=== PATIENT | male | born 1940 | race Caucasian/White ===

== ENCOUNTER 2021-05-23 15:18 | Inpatient (IN) ==
[2021-05-23] MEDS ORDERED: Loratadine 10 MG TABLET PO PRN (21:47)
[2021-05-23] MEDS ORDERED: Acetaminophen 325 MG TABLET PO PRN (21:47)
[2021-05-23] MEDS ORDERED: Nitroglycerin 0.4 MG TAB.SUBL SL PRN (21:47)
[2021-05-23] MEDS ORDERED: MOM Conc 10 ML UD.LIQ PO PRN (21:47)
[2021-05-23] MEDS ORDERED: *HR* Dextrose 50 % in Water (Vial) 50 ML VIAL IVP PRN (21:49)
[2021-05-23] MEDS ORDERED: D5% in Water 1,000 ML IVC PRN (21:49)
[2021-05-23] MEDS ORDERED: Dextrose Gel 15 GM/37.5 ML TUBE PO PRN ×2 (21:49)
[2021-05-23] MEDS ORDERED: Insulin DETEMIR 100 UNIT/ML per UNIT SUBQ ONE (22:15)
[2021-05-23] MEDS: Budesonide/Formoterol 160/4.5 1 PUFF INH IH SCH (23:09)
[2021-05-24] MEDS: *HR* Heparin 5,000 UNIT/ML VIAL SQ SCH ×2 (05:24→18:05)
[2021-05-24 06:39] LABS: Basophils % 0.2 %; Eosinophils % 0.3 %; Hemoglobin 8.5 g/dL (12.9-16.9); Immature Granulocytes % 0.5 % (0-4); Lymphocytes % 8.8 %; Mean Corpuscular HGB Conc 31.5 g/dL (31.6-35.5); Mean Corpuscular Hemoglobin 27.3 pg (28.0-33.3); Mean Corpuscular Volume 86.8 fL (83.0-100.0); Mean Platelet Volume 10.6 fL (9.4-12.4); Monocytes # 1.7 K/mcL (0.0-1.3); Monocytes % 14.8 %; Neutrophils # 8.6 K/mcL (1.6-8.9); Platelet Count 248 K/mcL (140-400); Red Blood Count 3.11 M/mcL (4.19-5.50); Red Cell Distribution Width 14.9 % (11.5-14.5); Segmented Neutrophils % 75.4 %; White Blood Count 11.4 K/mcL (4.3-11.1)
[2021-05-24 06:51] LABS: Calcium 8.4 mg/dL (8.6-10.3)
[2021-05-24] MEDS: Insulin LISPRO 300 UNITS/3 ML VIAL SUBQ SCH ×6 (07:46→16:35)
[2021-05-24] MEDS: Budesonide/Formoterol 160/4.5 1 PUFF INH IH SCH ×2 (07:50→21:46)
[2021-05-24] MEDS: Cholecalciferol (D-3) 1,000 UNIT (25MCG) TABLET PO SCH (09:01)
[2021-05-24] MEDS: Finasteride 5 MG TABLET PO SCH (09:01)
[2021-05-24] MEDS: FLUoxetine 20 MG CAPSULE PO SCH (09:02)
[2021-05-24] MEDS: Isosorbide MONOnitrate (24 HR) 30 MG TAB.ER.24H PO SCH (09:02)
[2021-05-24] MEDS: Fluticasone Propionate Nasal 50 MCG/SPRAY BOTTLE NS SCH (09:12)
[2021-05-24] MEDS: Insulin DETEMIR 100 UNIT/ML X5UNITS SUBQ SCH (09:12)
[2021-05-25] MEDS: *HR* Heparin 5,000 UNIT/ML VIAL SQ SCH ×2 (06:14→17:29)
[2021-05-25] MEDS: FLUoxetine 20 MG CAPSULE PO SCH (08:00)
[2021-05-25] MEDS: Isosorbide MONOnitrate (24 HR) 30 MG TAB.ER.24H PO SCH (08:00)
[2021-05-25] MEDS: Cholecalciferol (D-3) 1,000 UNIT (25MCG) TABLET PO SCH (08:01)
[2021-05-25] MEDS: Fluticasone Propionate Nasal 50 MCG/SPRAY BOTTLE NS SCH (08:01)
[2021-05-25] MEDS: Finasteride 5 MG TABLET PO SCH (08:01)
[2021-05-25] MEDS: Insulin LISPRO 300 UNITS/3 ML VIAL SUBQ SCH ×6 (08:02→17:02)
[2021-05-25] MEDS: Insulin DETEMIR 100 UNIT/ML X5UNITS SUBQ SCH (09:30)
[2021-05-25] MEDS: Budesonide/Formoterol 160/4.5 1 PUFF INH IH SCH ×2 (10:41→21:45)
[2021-05-25] MEDS ORDERED: Insulin DETEMIR 100 UNIT/ML X5UNITS SUBQ ONE (21:00)
[2021-05-25] MEDS ORDERED: Insulin DETEMIR 100 UNIT/ML X5UNITS SUBQ SCH (21:00)
[2021-05-26] MEDS: *HR* Heparin 5,000 UNIT/ML VIAL SQ SCH ×2 (05:17→16:47)
[2021-05-26 07:13] LABS: Hematocrit 26.9 % (37.5-50.1); Hemoglobin 8.4 g/dL (12.9-16.9); Mean Corpuscular HGB Conc 31.2 g/dL (31.6-35.5); Mean Corpuscular Hemoglobin 27.3 pg (28.0-33.3); Mean Corpuscular Volume 87.3 fL (83.0-100.0); Mean Platelet Volume 10.6 fL (9.4-12.4); Platelet Count 293 K/mcL (140-400); Red Blood Count 3.08 M/mcL (4.19-5.50); Red Cell Distribution Width 15.1 % (11.5-14.5); White Blood Count 6.8 K/mcL (4.3-11.1)
[2021-05-26 07:38] LABS: Calcium 7.9 mg/dL (8.6-10.3); Potassium 4.4 mEq/L (3.5-5.1)
[2021-05-26] MEDS: Isosorbide MONOnitrate (24 HR) 30 MG TAB.ER.24H PO SCH (08:48)
[2021-05-26] MEDS: FLUoxetine 20 MG CAPSULE PO SCH (08:48)
[2021-05-26] MEDS: Fluticasone Propionate Nasal 50 MCG/SPRAY BOTTLE NS SCH (08:48)
[2021-05-26] MEDS: Cholecalciferol (D-3) 1,000 UNIT (25MCG) TABLET PO SCH (08:48)
[2021-05-26] MEDS: Finasteride 5 MG TABLET PO SCH (08:48)
[2021-05-26] MEDS: Insulin LISPRO 300 UNITS/3 ML VIAL SUBQ SCH ×6 (08:54→16:47)
[2021-05-26] MEDS: Budesonide/Formoterol 160/4.5 1 PUFF INH IH SCH ×2 (09:54→20:35)
[2021-05-26] MEDS ORDERED: Insulin DETEMIR 100 UNIT/ML X5UNITS SUBQ SCH (21:00)
[2021-05-26] MEDS ORDERED: Insulin DETEMIR 100 UNIT/ML per UNIT SUBQ ONE (21:00)
[2021-05-27] MEDS: *HR* Heparin 5,000 UNIT/ML VIAL SQ SCH ×2 (06:19→16:53)
[2021-05-27] MEDS: Insulin LISPRO 300 UNITS/3 ML VIAL SUBQ SCH ×6 (09:22→16:40)
[2021-05-27] MEDS: Cholecalciferol (D-3) 1,000 UNIT (25MCG) TABLET PO SCH (09:22)
[2021-05-27] MEDS: Isosorbide MONOnitrate (24 HR) 30 MG TAB.ER.24H PO SCH (09:22)
[2021-05-27] MEDS: Finasteride 5 MG TABLET PO SCH (09:22)
[2021-05-27] MEDS: FLUoxetine 20 MG CAPSULE PO SCH (09:22)
[2021-05-27] MEDS: Fluticasone Propionate Nasal 50 MCG/SPRAY BOTTLE NS SCH (09:23)
[2021-05-27] MEDS: Budesonide/Formoterol 160/4.5 1 PUFF INH IH SCH ×2 (09:56→21:09)
[2021-05-27] MEDS: Ondansetron ODT 4 MG TAB.RAPDIS SL PRN (16:54)
[2021-05-27] MEDS: Insulin DETEMIR 100 UNIT/ML X5UNITS SUBQ SCH (20:35)
[2021-05-28] MEDS: *HR* Heparin 5,000 UNIT/ML VIAL SQ SCH ×2 (05:52→16:33)
[2021-05-28 06:40] LABS: Calcium 8.3 mg/dL (8.6-10.3); Potassium 4.6 mEq/L (3.5-5.1)
[2021-05-28] MEDS: Insulin LISPRO 300 UNITS/3 ML VIAL SUBQ SCH ×6 (07:47→16:41)
[2021-05-28] MEDS: Finasteride 5 MG TABLET PO SCH (09:36)
[2021-05-28] MEDS: FLUoxetine 20 MG CAPSULE PO SCH (09:36)
[2021-05-28] MEDS: Fluticasone Propionate Nasal 50 MCG/SPRAY BOTTLE NS SCH (09:36)
[2021-05-28] MEDS: Cholecalciferol (D-3) 1,000 UNIT (25MCG) TABLET PO SCH (09:36)
[2021-05-28] MEDS: Isosorbide MONOnitrate (24 HR) 30 MG TAB.ER.24H PO SCH (09:36)
[2021-05-28] MEDS: Budesonide/Formoterol 160/4.5 1 PUFF INH IH SCH ×2 (10:06→22:30)
[2021-05-28] MEDS: Mag Hydrox/Al Hydrox/Simeth 30 ML UDC PO PRN ×2 (10:13→16:33)
[2021-05-28] MEDS: Insulin DETEMIR 100 UNIT/ML X5UNITS SUBQ SCH (20:24)
[2021-05-29] MEDS: *HR* Heparin 5,000 UNIT/ML VIAL SQ SCH ×2 (05:56→17:01)
[2021-05-29] MEDS: Budesonide/Formoterol 160/4.5 1 PUFF INH IH SCH ×2 (08:10→21:27)
[2021-05-29] MEDS: Insulin LISPRO 300 UNITS/3 ML VIAL SUBQ SCH ×6 (08:22→17:00)
[2021-05-29] MEDS: Fluticasone Propionate Nasal 50 MCG/SPRAY BOTTLE NS SCH (08:23)
[2021-05-29] MEDS: Isosorbide MONOnitrate (24 HR) 30 MG TAB.ER.24H PO SCH (08:25)
[2021-05-29] MEDS: Cholecalciferol (D-3) 1,000 UNIT (25MCG) TABLET PO SCH (08:25)
[2021-05-29] MEDS: FLUoxetine 20 MG CAPSULE PO SCH (08:25)
[2021-05-29] MEDS: Finasteride 5 MG TABLET PO SCH (08:26)
[2021-05-29] MEDS: Insulin DETEMIR 100 UNIT/ML X5UNITS SUBQ SCH (20:17)
[2021-05-29] MEDS: Mag Hydrox/Al Hydrox/Simeth 30 ML UDC PO PRN (20:17)
[2021-05-30 06:02] LABS: Basophils % 0.5 %; Eosinophils # 0.1 K/mcL (0.0-0.6); Eosinophils % 1.7 %; Hematocrit 28.7 % (37.5-50.1); Hemoglobin 8.9 g/dL (12.9-16.9); Immature Granulocytes % 0.8 % (0-4); Lymphocytes % 16.7 %; Mean Corpuscular Hemoglobin 27.3 pg (28.0-33.3); Mean Platelet Volume 9.5 fL (9.4-12.4); Monocytes % 16.7 %; Neutrophils # 3.8 K/mcL (1.6-8.9); Platelet Count 359 K/mcL (140-400); Red Blood Count 3.26 M/mcL (4.19-5.50); Red Cell Distribution Width 15.2 % (11.5-14.5); Segmented Neutrophils % 63.6 %
[2021-05-30] MEDS: *HR* Heparin 5,000 UNIT/ML VIAL SQ SCH ×2 (06:21→17:26)
[2021-05-30 06:27] LABS: Calcium 8.2 mg/dL (8.6-10.3); Potassium 4.8 mEq/L (3.5-5.1)
[2021-05-30] MEDS: Insulin LISPRO 300 UNITS/3 ML VIAL SUBQ SCH ×6 (07:34→17:26)
[2021-05-30] MEDS: Finasteride 5 MG TABLET PO SCH (09:06)
[2021-05-30] MEDS: Fluticasone Propionate Nasal 50 MCG/SPRAY BOTTLE NS SCH (09:06)
[2021-05-30] MEDS: Isosorbide MONOnitrate (24 HR) 30 MG TAB.ER.24H PO SCH (09:06)
[2021-05-30] MEDS: FLUoxetine 20 MG CAPSULE PO SCH (09:06)
[2021-05-30] MEDS: Cholecalciferol (D-3) 1,000 UNIT (25MCG) TABLET PO SCH (09:07)
[2021-05-30] MEDS: Budesonide/Formoterol 160/4.5 1 PUFF INH IH SCH ×2 (09:23→20:23)
[2021-05-30] MEDS: Insulin DETEMIR 100 UNIT/ML X5UNITS SUBQ SCH (21:03)
[2021-05-30] MEDS: Mag Hydrox/Al Hydrox/Simeth 30 ML UDC PO PRN (21:03)
[2021-05-31] MEDS: *HR* Heparin 5,000 UNIT/ML VIAL SQ SCH ×2 (05:49→17:20)
[2021-05-31] MEDS: Insulin LISPRO 300 UNITS/3 ML VIAL SUBQ SCH ×6 (07:49→17:25)
[2021-05-31] MEDS: Budesonide/Formoterol 160/4.5 1 PUFF INH IH SCH ×2 (09:46→21:12)
[2021-05-31] MEDS: Isosorbide MONOnitrate (24 HR) 30 MG TAB.ER.24H PO SCH (10:49)
[2021-05-31] MEDS: Cholecalciferol (D-3) 1,000 UNIT (25MCG) TABLET PO SCH (10:49)
[2021-05-31] MEDS: FLUoxetine 20 MG CAPSULE PO SCH (10:49)
[2021-05-31] MEDS: Finasteride 5 MG TABLET PO SCH (10:49)
[2021-05-31] MEDS: Fluticasone Propionate Nasal 50 MCG/SPRAY BOTTLE NS SCH (12:32)
[2021-05-31] MEDS ORDERED: 0.9 % Sodium Chloride 1,000 ML IVC SCH (12:45)
[2021-05-31] MEDS: *HR* OxyCODONE Immed Rel 5 MG TABLET PO PRN (14:50)
[2021-05-31] MEDS: Insulin DETEMIR 100 UNIT/ML X5UNITS SUBQ SCH (21:20)
[2021-06-01] MEDS: Ondansetron ODT 4 MG TAB.RAPDIS SL PRN (03:19)
[2021-06-01] MEDS: *HR* OxyCODONE Immed Rel 5 MG TABLET PO PRN (04:28)
[2021-06-01] MEDS: Mag Hydrox/Al Hydrox/Simeth 30 ML UDC PO PRN (04:28)
[2021-06-01] MEDS: *HR* Heparin 5,000 UNIT/ML VIAL SQ SCH (06:03)
[2021-06-01 07:16] VITALS: BP 121/55
[2021-06-01 07:46] LABS: Potassium 7.3 mEq/L (3.5-5.1)
[2021-06-01 07:50] LABS: Basophils # 0.1 K/mcL (0.0-0.2); Basophils % 0.5 %; Eosinophils % 0.2 %; Hematocrit 31.7 % (37.5-50.1); Immature Granulocytes % 0.7 % (0-4); Lymphocytes # 0.6 K/mcL (0.6-4.6); Lymphocytes % 5.7 %; Mean Corpuscular HGB Conc 28.4 g/dL (31.6-35.5); Mean Corpuscular Hemoglobin 27.6 pg (28.0-33.3); Mean Corpuscular Volume 97.2 fL (83.0-100.0); Monocytes # 0.9 K/mcL (0.0-1.3); Monocytes % 8.2 %; Neutrophils # 8.9 K/mcL (1.6-8.9); Platelet Count 405 K/mcL (140-400); Red Blood Count 3.26 M/mcL (4.19-5.50); Red Cell Distribution Width 15.9 % (11.5-14.5); Segmented Neutrophils % 84.7 %; White Blood Count 10.5 K/mcL (4.3-11.1)
[2021-06-01] MEDS ORDERED: 0.9 % Sodium Chloride 500 ML IVC ONE (08:03)
[2021-06-01 08:05] LABS: Albumin 3.3 g/dL (3.5-5.7); Bilirubin,Direct 0.1 mg/dL (0.0-0.2); Bilirubin,Indirect 0.3 mg/dL (0.0-1.0); Bilirubin,Total 0.4 mg/dL (0.3-1.0); Globulin 3.3 g/dL (2.4-3.5); Total Protein 6.6 g/dL (6.4-8.9)
[2021-06-01 08:20] LABS: Calcium 8.3 mg/dL (8.6-10.3); Potassium 6.8 mEq/L (3.5-5.1)
[2021-06-01] MEDS: Insulin LISPRO 300 UNITS/3 ML VIAL SUBQ SCH ×2 (08:28→08:29)
[2021-06-01 08:29] LABS: ABG Base Excess -13 mEq/L (-2 to 3); ABG HCO3 13 mEq/L (21-27); ABG Oxygen Saturation 98 % (95-98); ABG PCO2 29 mmHg (35-45); ABG PH 7.25 pH Units (7.32-7.45); ABG PO2 111 mmHg (85-104); ABG TCO2 14 mEq/L (20-26); Blood Gas FiO2 2.5 (1-15=lpm or21-100=%)
[2021-06-01] MEDS ORDERED: Insulin Human Regular 10 UNIT in 0.9 % Sodium Chloride 10 ML IV ONE ×2 (08:30→09:00)
[2021-06-01] MEDS ORDERED: Sodium Bicarbonate 50 MEQ/50 ML VIAL IVP ONE (08:31)
[2021-06-01] MEDS ORDERED: *HR* Dextrose 50 % in Water (Vial) 50 ML VIAL IVP PRN (08:31)
[2021-06-01] MEDS: Finasteride 5 MG TABLET PO SCH (08:34)
[2021-06-01] MEDS: FLUoxetine 20 MG CAPSULE PO SCH (08:34)
[2021-06-01] MEDS: Fluticasone Propionate Nasal 50 MCG/SPRAY BOTTLE NS SCH (08:34)
[2021-06-01] MEDS: Isosorbide MONOnitrate (24 HR) 30 MG TAB.ER.24H PO SCH (08:34)
[2021-06-01 08:35] LABS: Platelet Estimate Increased (Normal)
[2021-06-01] MEDS: Cholecalciferol (D-3) 1,000 UNIT (25MCG) TABLET PO SCH (08:35)
[2021-06-01] MEDS ORDERED: Insulin Human Regular 100 UNIT in 0.9 % Sodium Chloride 100 ML IVC SCH (08:45)
[2021-06-01] MEDS: Calcium Gluconate 1gm/50mL 1 GM/50 ML BAG IVPB SCH ×2 (08:56→09:51)
[2021-06-01] MEDS: Budesonide/Formoterol 160/4.5 1 PUFF INH IH SCH (10:14)
== END 2021-06-01 10:20 | disposition short-term general hospital (02) | DRG 945 ==
LOC: INPPIK 21:01
PROVIDERS: ADMIT Family Medicine; ATTEND Family Medicine

== ENCOUNTER 2021-06-07 17:16 | Inpatient (IN) ==
[2021-06-08] MEDS ORDERED: Nitroglycerin 0.4 MG TAB.SUBL SL PRN (14:51)
[2021-06-08] MEDS ORDERED: Loratadine 10 MG TABLET PO PRN (14:58)
[2021-06-08] MEDS ORDERED: D5% in Water 1,000 ML IVC PRN (15:08)
[2021-06-08] MEDS ORDERED: Dextrose Gel 15 GM/37.5 ML TUBE PO PRN ×2 (15:08)
[2021-06-08] MEDS ORDERED: *HR* Dextrose 50 % in Water (Vial) 50 ML VIAL IVP PRN (15:08)
[2021-06-08] MEDS: Insulin LISPRO 300 UNITS/3 ML VIAL SUBQ SCH (16:41)
[2021-06-08] MEDS ORDERED: NON-FORMULARY MEDICATION 1 EACH EACH (Insulin Aspart [Novolog Flexpen] 100 UNIT/ML Insuln. SQ SCH (17:00)
[2021-06-08] MEDS: Famotidine 20 MG TABLET PO SCH (20:53)
[2021-06-08] MEDS: Acetaminophen 325 MG TABLET PO PRN (20:54)
[2021-06-08] MEDS ORDERED: Insulin DETEMIR 100 UNIT/ML X5UNITS SUBQ SCH (21:00)
[2021-06-08] MEDS: Budesonide/Formoterol 160/4.5 1 PUFF INH IH SCH (21:46)
[2021-06-09 07:02] LABS: Basophils % 0.5 %; Eosinophils # 0.1 K/mcL (0.0-0.6); Eosinophils % 0.9 %; Hematocrit 27.9 % (37.5-50.1); Hemoglobin 8.9 g/dL (12.9-16.9); Immature Granulocytes % 0.5 % (0-4); Lymphocytes # 1.2 K/mcL (0.6-4.6); Lymphocytes % 18.8 %; Mean Corpuscular HGB Conc 31.9 g/dL (31.6-35.5); Mean Corpuscular Hemoglobin 28.6 pg (28.0-33.3); Mean Corpuscular Volume 89.7 fL (83.0-100.0); Monocytes % 15.1 %; Neutrophils # 4.2 K/mcL (1.6-8.9); Platelet Count 267 K/mcL (140-400); Red Blood Count 3.11 M/mcL (4.19-5.50); Red Cell Distribution Width 15.9 % (11.5-14.5); Segmented Neutrophils % 64.2 %; White Blood Count 6.5 K/mcL (4.3-11.1)
[2021-06-09 08:11] LABS: Activated Partial Thrombo Time 25.7 Seconds (26.0-36.0)
[2021-06-09] MEDS: Isosorbide MONOnitrate (24 HR) 30 MG TAB.ER.24H PO SCH (08:20)
[2021-06-09] MEDS: FLUoxetine 20 MG CAPSULE PO SCH (08:20)
[2021-06-09] MEDS: Aspirin Enteric Coated 81 MG Tablet PO SCH (08:21)
[2021-06-09] MEDS: Finasteride 5 MG TABLET PO SCH (08:21)
[2021-06-09] MEDS: Cholecalciferol (D-3) 1,000 UNIT (25MCG) TABLET PO SCH (08:21)
[2021-06-09] MEDS: Insulin LISPRO 300 UNITS/3 ML VIAL SUBQ SCH ×3 (08:23→16:46)
[2021-06-09] MEDS: Fluticasone Propionate Nasal 50 MCG/SPRAY BOTTLE NS SCH (08:23)
[2021-06-09] MEDS: Budesonide/Formoterol 160/4.5 1 PUFF INH IH SCH ×2 (10:02→21:01)
[2021-06-09] MEDS: hydrALAZINE 25 MG TABLET PO SCH ×2 (16:45→23:03)
[2021-06-09] MEDS: Insulin DETEMIR 100 UNIT/ML X5UNITS SUBQ SCH (19:33)
[2021-06-09] MEDS: Famotidine 20 MG TABLET PO SCH (19:34)
[2021-06-10] MEDS: FLUoxetine 20 MG CAPSULE PO SCH (07:40)
[2021-06-10] MEDS: Finasteride 5 MG TABLET PO SCH (07:40)
[2021-06-10] MEDS: hydrALAZINE 25 MG TABLET PO SCH ×2 (07:40→16:29)
[2021-06-10] MEDS: Aspirin Enteric Coated 81 MG Tablet PO SCH (07:40)
[2021-06-10] MEDS: Fluticasone Propionate Nasal 50 MCG/SPRAY BOTTLE NS SCH (07:41)
[2021-06-10] MEDS: Isosorbide MONOnitrate (24 HR) 30 MG TAB.ER.24H PO SCH (07:41)
[2021-06-10] MEDS: Cholecalciferol (D-3) 1,000 UNIT (25MCG) TABLET PO SCH (07:41)
[2021-06-10] MEDS: Insulin LISPRO 300 UNITS/3 ML VIAL SUBQ SCH ×3 (07:42→16:30)
[2021-06-10] MEDS: Insulin DETEMIR 100 UNIT/ML X5UNITS SUBQ SCH ×2 (07:46→20:32)
[2021-06-10] MEDS: Budesonide/Formoterol 160/4.5 1 PUFF INH IH SCH ×2 (10:10→21:40)
[2021-06-10] MEDS: Famotidine 20 MG TABLET PO SCH (20:31)
[2021-06-11] MEDS: hydrALAZINE 25 MG TABLET PO SCH ×3 (00:55→17:36)
[2021-06-11 06:32] LABS: Calcium 7.4 mg/dL (8.6-10.3); Potassium 3.7 mEq/L (3.5-5.1)
[2021-06-11 06:42] LABS: Basophils % 0.5 %; Eosinophils # 0.1 K/mcL (0.0-0.6); Hematocrit 27.8 % (37.5-50.1); Hemoglobin 8.7 g/dL (12.9-16.9); Immature Granulocytes % 0.6 % (0-4); Lymphocytes # 1.1 K/mcL (0.6-4.6); Lymphocytes % 13.9 %; Mean Corpuscular HGB Conc 31.3 g/dL (31.6-35.5); Mean Corpuscular Hemoglobin 28.3 pg (28.0-33.3); Mean Corpuscular Volume 90.6 fL (83.0-100.0); Mean Platelet Volume 10.2 fL (9.4-12.4); Monocytes # 1.1 K/mcL (0.0-1.3); Monocytes % 14.4 %; Neutrophils # 5.5 K/mcL (1.6-8.9); Platelet Count 259 K/mcL (140-400); Red Blood Count 3.07 M/mcL (4.19-5.50); Red Cell Distribution Width 16.1 % (11.5-14.5); Segmented Neutrophils % 69.6 %; White Blood Count 7.9 K/mcL (4.3-11.1)
[2021-06-11] MEDS: Insulin LISPRO 300 UNITS/3 ML VIAL SUBQ SCH ×3 (07:31→16:47)
[2021-06-11] MEDS: Fluticasone Propionate Nasal 50 MCG/SPRAY BOTTLE NS SCH (07:58)
[2021-06-11] MEDS: Aspirin Enteric Coated 81 MG Tablet PO SCH (07:59)
[2021-06-11] MEDS: FLUoxetine 20 MG CAPSULE PO SCH (07:59)
[2021-06-11] MEDS: Finasteride 5 MG TABLET PO SCH (08:00)
[2021-06-11] MEDS: Cholecalciferol (D-3) 1,000 UNIT (25MCG) TABLET PO SCH (08:00)
[2021-06-11] MEDS: Isosorbide MONOnitrate (24 HR) 30 MG TAB.ER.24H PO SCH (08:00)
[2021-06-11] MEDS: Budesonide/Formoterol 160/4.5 1 PUFF INH IH SCH ×2 (09:20→23:49)
[2021-06-11] MEDS: Insulin DETEMIR 100 UNIT/ML X5UNITS SUBQ SCH ×2 (10:00→21:08)
[2021-06-11] MEDS: Famotidine 20 MG TABLET PO SCH (21:07)
[2021-06-12] MEDS: hydrALAZINE 25 MG TABLET PO SCH ×3 (00:17→17:42)
[2021-06-12] MEDS: Insulin LISPRO 300 UNITS/3 ML VIAL SUBQ SCH ×3 (08:21→17:37)
[2021-06-12] MEDS: Budesonide/Formoterol 160/4.5 1 PUFF INH IH SCH ×2 (09:17→22:18)
[2021-06-12] MEDS: Cholecalciferol (D-3) 1,000 UNIT (25MCG) TABLET PO SCH (09:27)
[2021-06-12] MEDS: FLUoxetine 20 MG CAPSULE PO SCH (09:27)
[2021-06-12] MEDS: Finasteride 5 MG TABLET PO SCH (09:27)
[2021-06-12] MEDS: Aspirin Enteric Coated 81 MG Tablet PO SCH (09:27)
[2021-06-12] MEDS: Isosorbide MONOnitrate (24 HR) 30 MG TAB.ER.24H PO SCH (09:28)
[2021-06-12] MEDS: Fluticasone Propionate Nasal 50 MCG/SPRAY BOTTLE NS SCH (09:28)
[2021-06-12] MEDS: Insulin DETEMIR 100 UNIT/ML X5UNITS SUBQ SCH ×2 (09:29→21:08)
[2021-06-12] MEDS: amLODIPine 5 MG TABLET PO SCH (13:07)
[2021-06-12] MEDS: Famotidine 20 MG TABLET PO SCH (21:07)
[2021-06-13] MEDS: hydrALAZINE 25 MG TABLET PO SCH ×3 (02:41→16:56)
[2021-06-13] MEDS: Aspirin Enteric Coated 81 MG Tablet PO SCH (08:04)
[2021-06-13] MEDS: Finasteride 5 MG TABLET PO SCH (08:05)
[2021-06-13] MEDS: amLODIPine 5 MG TABLET PO SCH (08:05)
[2021-06-13] MEDS: FLUoxetine 20 MG CAPSULE PO SCH (08:05)
[2021-06-13] MEDS: Isosorbide MONOnitrate (24 HR) 30 MG TAB.ER.24H PO SCH (08:05)
[2021-06-13] MEDS: Cholecalciferol (D-3) 1,000 UNIT (25MCG) TABLET PO SCH (08:05)
[2021-06-13] MEDS: Acetaminophen 325 MG TABLET PO PRN (08:05)
[2021-06-13] MEDS: Insulin LISPRO 300 UNITS/3 ML VIAL SUBQ SCH ×3 (08:06→16:57)
[2021-06-13] MEDS: Insulin DETEMIR 100 UNIT/ML X5UNITS SUBQ SCH ×2 (08:06→20:43)
[2021-06-13] MEDS: Budesonide/Formoterol 160/4.5 1 PUFF INH IH SCH ×2 (10:00→22:09)
[2021-06-13] MEDS: Fluticasone Propionate Nasal 50 MCG/SPRAY BOTTLE NS SCH (11:46)
[2021-06-13] MEDS: Famotidine 20 MG TABLET PO SCH (20:41)
[2021-06-14] MEDS: hydrALAZINE 25 MG TABLET PO SCH ×3 (00:16→17:34)
[2021-06-14] MEDS: Insulin LISPRO 300 UNITS/3 ML VIAL SUBQ SCH ×3 (07:30→17:12)
[2021-06-14] MEDS: Budesonide/Formoterol 160/4.5 1 PUFF INH IH SCH ×2 (08:28→21:49)
[2021-06-14] MEDS: Insulin DETEMIR 100 UNIT/ML X5UNITS SUBQ SCH ×2 (09:39→20:03)
[2021-06-14] MEDS: Finasteride 5 MG TABLET PO SCH (09:40)
[2021-06-14] MEDS: amLODIPine 5 MG TABLET PO SCH (09:40)
[2021-06-14] MEDS: Cholecalciferol (D-3) 1,000 UNIT (25MCG) TABLET PO SCH (09:40)
[2021-06-14] MEDS: Acetaminophen 325 MG TABLET PO PRN (09:40)
[2021-06-14] MEDS: Isosorbide MONOnitrate (24 HR) 30 MG TAB.ER.24H PO SCH (09:40)
[2021-06-14] MEDS: FLUoxetine 20 MG CAPSULE PO SCH (09:41)
[2021-06-14] MEDS: Aspirin Enteric Coated 81 MG Tablet PO SCH (09:44)
[2021-06-14] MEDS: Fluticasone Propionate Nasal 50 MCG/SPRAY BOTTLE NS SCH (11:29)
[2021-06-14] MEDS: Ondansetron ODT 4 MG TAB.RAPDIS SL PRN (17:35)
[2021-06-14] MEDS: Famotidine 20 MG TABLET PO SCH (20:07)
[2021-06-15] MEDS: hydrALAZINE 25 MG TABLET PO SCH ×3 (01:28→16:36)
[2021-06-15] MEDS: FLUoxetine 20 MG CAPSULE PO SCH (08:06)
[2021-06-15] MEDS: Finasteride 5 MG TABLET PO SCH (08:06)
[2021-06-15] MEDS: Fluticasone Propionate Nasal 50 MCG/SPRAY BOTTLE NS SCH (08:06)
[2021-06-15] MEDS: amLODIPine 5 MG TABLET PO SCH (08:06)
[2021-06-15] MEDS: Isosorbide MONOnitrate (24 HR) 30 MG TAB.ER.24H PO SCH (08:07)
[2021-06-15] MEDS: Cholecalciferol (D-3) 1,000 UNIT (25MCG) TABLET PO SCH (08:07)
[2021-06-15] MEDS: Insulin LISPRO 300 UNITS/3 ML VIAL SUBQ SCH ×3 (08:07→16:26)
[2021-06-15] MEDS: Aspirin Enteric Coated 81 MG Tablet PO SCH (08:08)
[2021-06-15] MEDS: Insulin DETEMIR 100 UNIT/ML X5UNITS SUBQ SCH ×2 (08:17→20:45)
[2021-06-15] MEDS: Budesonide/Formoterol 160/4.5 1 PUFF INH IH SCH ×2 (09:35→23:16)
[2021-06-15] MEDS: Acetaminophen 325 MG TABLET PO PRN ×2 (10:11→20:37)
[2021-06-15] MEDS: Famotidine 20 MG TABLET PO SCH (20:38)
[2021-06-16] MEDS: hydrALAZINE 25 MG TABLET PO SCH ×3 (00:36→16:57)
[2021-06-16 05:35] LABS: Basophils # 0.1 K/mcL (0.0-0.2); Basophils % 0.7 %; Eosinophils # 0.1 K/mcL (0.0-0.6); Eosinophils % 1.2 %; Hematocrit 28.7 % (37.5-50.1); Immature Granulocytes % 0.4 % (0-4); Lymphocytes # 0.9 K/mcL (0.6-4.6); Lymphocytes % 13.4 %; Mean Corpuscular HGB Conc 31.4 g/dL (31.6-35.5); Mean Corpuscular Hemoglobin 28.7 pg (28.0-33.3); Mean Corpuscular Volume 91.4 fL (83.0-100.0); Mean Platelet Volume 9.7 fL (9.4-12.4); Monocytes # 1.1 K/mcL (0.0-1.3); Monocytes % 15.9 %; Neutrophils # 4.7 K/mcL (1.6-8.9); Platelet Count 213 K/mcL (140-400); Red Blood Count 3.14 M/mcL (4.19-5.50); Red Cell Distribution Width 16.9 % (11.5-14.5); Segmented Neutrophils % 68.4 %; White Blood Count 6.9 K/mcL (4.3-11.1)
[2021-06-16 06:07] LABS: Calcium 7.4 mg/dL (8.6-10.3)
[2021-06-16] MEDS: Fluticasone Propionate Nasal 50 MCG/SPRAY BOTTLE NS SCH (08:42)
[2021-06-16] MEDS: FLUoxetine 20 MG CAPSULE PO SCH (08:43)
[2021-06-16] MEDS: Cholecalciferol (D-3) 1,000 UNIT (25MCG) TABLET PO SCH (08:43)
[2021-06-16] MEDS: Finasteride 5 MG TABLET PO SCH (08:43)
[2021-06-16] MEDS: Isosorbide MONOnitrate (24 HR) 30 MG TAB.ER.24H PO SCH (08:43)
[2021-06-16] MEDS: amLODIPine 5 MG TABLET PO SCH (08:43)
[2021-06-16] MEDS: Aspirin Enteric Coated 81 MG Tablet PO SCH (08:44)
[2021-06-16] MEDS: Insulin LISPRO 300 UNITS/3 ML VIAL SUBQ SCH ×3 (08:44→16:10)
[2021-06-16] MEDS: Budesonide/Formoterol 160/4.5 1 PUFF INH IH SCH ×2 (09:48→20:41)
[2021-06-16] MEDS: Insulin DETEMIR 100 UNIT/ML X5UNITS SUBQ SCH ×2 (10:18→21:00)
[2021-06-16] MEDS: Ondansetron ODT 4 MG TAB.RAPDIS SL PRN (13:13)
[2021-06-16] MEDS: Famotidine 20 MG TABLET PO SCH (21:00)
[2021-06-17] MEDS: hydrALAZINE 25 MG TABLET PO SCH ×3 (00:28→17:50)
[2021-06-17] MEDS: Insulin LISPRO 300 UNITS/3 ML VIAL SUBQ SCH ×3 (09:26→17:50)
[2021-06-17] MEDS: Aspirin Enteric Coated 81 MG Tablet PO SCH (09:26)
[2021-06-17] MEDS: Fluticasone Propionate Nasal 50 MCG/SPRAY BOTTLE NS SCH (09:27)
[2021-06-17] MEDS: FLUoxetine 20 MG CAPSULE PO SCH (09:27)
[2021-06-17] MEDS: Finasteride 5 MG TABLET PO SCH (09:28)
[2021-06-17] MEDS: Isosorbide MONOnitrate (24 HR) 30 MG TAB.ER.24H PO SCH (09:28)
[2021-06-17] MEDS: Cholecalciferol (D-3) 1,000 UNIT (25MCG) TABLET PO SCH (09:28)
[2021-06-17] MEDS: amLODIPine 5 MG TABLET PO SCH (09:29)
[2021-06-17] MEDS: Budesonide/Formoterol 160/4.5 1 PUFF INH IH SCH ×2 (11:29→21:04)
[2021-06-17] MEDS: Famotidine 20 MG TABLET PO SCH (21:24)
[2021-06-17] MEDS: Insulin DETEMIR 100 UNIT/ML X5UNITS SUBQ SCH (21:26)
[2021-06-18] MEDS: hydrALAZINE 25 MG TABLET PO SCH ×3 (00:31→17:34)
[2021-06-18] MEDS: Fluticasone Propionate Nasal 50 MCG/SPRAY BOTTLE NS SCH (08:12)
[2021-06-18] MEDS: Isosorbide MONOnitrate (24 HR) 30 MG TAB.ER.24H PO SCH (08:13)
[2021-06-18] MEDS: FLUoxetine 20 MG CAPSULE PO SCH (08:13)
[2021-06-18] MEDS: amLODIPine 5 MG TABLET PO SCH (08:13)
[2021-06-18] MEDS: Aspirin Enteric Coated 81 MG Tablet PO SCH (08:13)
[2021-06-18] MEDS: Finasteride 5 MG TABLET PO SCH (08:14)
[2021-06-18] MEDS: Cholecalciferol (D-3) 1,000 UNIT (25MCG) TABLET PO SCH (08:14)
[2021-06-18] MEDS: Insulin LISPRO 300 UNITS/3 ML VIAL SUBQ SCH ×3 (08:17→17:35)
[2021-06-18] MEDS: Budesonide/Formoterol 160/4.5 1 PUFF INH IH SCH ×2 (10:27→21:13)
[2021-06-18 11:28] LABS: Basophils # 0.1 K/mcL (0.0-0.2); Basophils % 0.6 %; Eosinophils # 0.1 K/mcL (0.0-0.6); Eosinophils % 0.7 %; Hematocrit 29.1 % (37.5-50.1); Hemoglobin 9.1 g/dL (12.9-16.9); Immature Granulocytes % 0.2 % (0-4); Lymphocytes # 0.9 K/mcL (0.6-4.6); Lymphocytes % 11.1 %; Mean Corpuscular HGB Conc 31.3 g/dL (31.6-35.5); Mean Corpuscular Hemoglobin 28.7 pg (28.0-33.3); Mean Corpuscular Volume 91.8 fL (83.0-100.0); Mean Platelet Volume 10.1 fL (9.4-12.4); Monocytes # 1.2 K/mcL (0.0-1.3); Monocytes % 14.7 %; Neutrophils # 5.9 K/mcL (1.6-8.9); Platelet Count 234 K/mcL (140-400); Red Blood Count 3.17 M/mcL (4.19-5.50); Red Cell Distribution Width 16.5 % (11.5-14.5); Segmented Neutrophils % 72.7 %; White Blood Count 8.1 K/mcL (4.3-11.1)
[2021-06-18 11:48] LABS: Calcium 7.7 mg/dL (8.6-10.3); Potassium 4.3 mEq/L (3.5-5.1)
[2021-06-18] MEDS: Insulin DETEMIR 100 UNIT/ML X5UNITS SUBQ SCH (20:15)
[2021-06-18] MEDS: Famotidine 20 MG TABLET PO SCH (20:15)
[2021-06-19] MEDS: hydrALAZINE 25 MG TABLET PO SCH ×3 (00:51→16:58)
[2021-06-19] MEDS: Insulin LISPRO 300 UNITS/3 ML VIAL SUBQ SCH ×3 (07:28→16:59)
[2021-06-19] MEDS: Aspirin Enteric Coated 81 MG Tablet PO SCH (09:52)
[2021-06-19] MEDS: Finasteride 5 MG TABLET PO SCH (09:52)
[2021-06-19] MEDS: FLUoxetine 20 MG CAPSULE PO SCH (09:52)
[2021-06-19] MEDS: Cholecalciferol (D-3) 1,000 UNIT (25MCG) TABLET PO SCH (09:52)
[2021-06-19] MEDS: amLODIPine 5 MG TABLET PO SCH (09:52)
[2021-06-19] MEDS: Isosorbide MONOnitrate (24 HR) 30 MG TAB.ER.24H PO SCH (09:53)
[2021-06-19] MEDS: Acetaminophen 325 MG TABLET PO PRN (09:56)
[2021-06-19] MEDS: Fluticasone Propionate Nasal 50 MCG/SPRAY BOTTLE NS SCH (09:57)
[2021-06-19] MEDS: Budesonide/Formoterol 160/4.5 1 PUFF INH IH SCH ×2 (11:08→21:25)
[2021-06-19] MEDS: Insulin DETEMIR 100 UNIT/ML X5UNITS SUBQ SCH (20:23)
[2021-06-19] MEDS: Famotidine 20 MG TABLET PO SCH (20:23)
[2021-06-20] MEDS: hydrALAZINE 25 MG TABLET PO SCH ×3 (01:09→17:05)
[2021-06-20 07:33] LABS: Calcium 7.6 mg/dL (8.6-10.3); Potassium 4.2 mEq/L (3.5-5.1)
[2021-06-20] MEDS: Insulin LISPRO 300 UNITS/3 ML VIAL SUBQ SCH ×3 (07:45→17:05)
[2021-06-20] MEDS: FLUoxetine 20 MG CAPSULE PO SCH (08:59)
[2021-06-20] MEDS: Isosorbide MONOnitrate (24 HR) 30 MG TAB.ER.24H PO SCH (08:59)
[2021-06-20] MEDS: Finasteride 5 MG TABLET PO SCH (09:00)
[2021-06-20] MEDS: amLODIPine 5 MG TABLET PO SCH (09:00)
[2021-06-20] MEDS: Cholecalciferol (D-3) 1,000 UNIT (25MCG) TABLET PO SCH (09:02)
[2021-06-20] MEDS: Aspirin Enteric Coated 81 MG Tablet PO SCH (09:07)
[2021-06-20] MEDS: Fluticasone Propionate Nasal 50 MCG/SPRAY BOTTLE NS SCH (09:07)
[2021-06-20] MEDS: Budesonide/Formoterol 160/4.5 1 PUFF INH IH SCH ×2 (09:29→21:42)
[2021-06-20] MEDS: Famotidine 20 MG TABLET PO SCH (20:53)
[2021-06-20] MEDS: Insulin DETEMIR 100 UNIT/ML X5UNITS SUBQ SCH (20:55)
[2021-06-21] MEDS: hydrALAZINE 25 MG TABLET PO SCH ×2 (04:15→07:42)
[2021-06-21 07:00] VITALS: TEMP 98.4
[2021-06-21 07:37] VITALS: BP 150/75; PULSE 74
[2021-06-21] MEDS: Insulin LISPRO 300 UNITS/3 ML VIAL SUBQ SCH ×2 (07:39→11:36)
[2021-06-21] MEDS: Fluticasone Propionate Nasal 50 MCG/SPRAY BOTTLE NS SCH (07:40)
[2021-06-21] MEDS: Aspirin Enteric Coated 81 MG Tablet PO SCH (07:41)
[2021-06-21] MEDS: Isosorbide MONOnitrate (24 HR) 30 MG TAB.ER.24H PO SCH (07:42)
[2021-06-21] MEDS: amLODIPine 5 MG TABLET PO SCH (07:42)
[2021-06-21] MEDS: Finasteride 5 MG TABLET PO SCH (07:42)
[2021-06-21] MEDS: Cholecalciferol (D-3) 1,000 UNIT (25MCG) TABLET PO SCH (07:43)
[2021-06-21] MEDS: FLUoxetine 20 MG CAPSULE PO SCH (07:43)
[2021-06-21] MEDS: Budesonide/Formoterol 160/4.5 1 PUFF INH IH SCH (09:21)
[2021-06-21 09:23] VITALS: RESP 18; O2SAT 98
== END 2021-06-21 13:25 | disposition home health service (06) | DRG 945 ==
LOC: INPPIK 06-08 13:52
PROVIDERS: ADMIT Family Medicine; ATTEND Family Medicine